=== PATIENT | male | born 2000 | race Caucasian/White ===

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

== ENCOUNTER 2020-03-26 14:45 | Emergency (ER) | payer OTHER ==
[2020-03-26] MEDS ORDERED: Diphtheria,Pertussis(Acell),Tetanus Vaccine 0.5 ML Syringe IM ONE (15:18)
--- NOTE | 2020-03-26 15:19 | EDM.PDOC ---
ED HPI GENERAL MEDICAL PROBLEM - General Chief Complaint: Laceration Stated Complaint: PT SLICE L HAND AND RIGHT FINGER Time Seen by Provider: 03/26/20 15:18 Source of Information: Reports: Patient History Limitations: Reports: No Limitations - History of Present Illness INITIAL COMMENTS - FREE TEXT/NARRATIVE: HISTORY AND PHYSICAL: History of present illness: Patient is a 19-year-old male presents to the ED for left finger laceration. Patient states he cut his finger using a pocket knife trying to open a bag of sunflower seeds an hour prior to arrival to the ED. Patient uncertain of last tetanus. Review of systems: As per history of present illness and below otherwise all systems reviewed and negative. Past medical history: As per history of present illness and as reviewed below otherwise noncontributory. Surgical history: As per history of present illness and as reviewed below otherwise noncontributory. Social history: No reported history of drug or alcohol abuse. Family history: As per history of present illness and as reviewed below otherwise noncontributory. Physical exam: General: Patient sitting comfortably in no acute distress and nontoxic appearing HEENT: Atraumatic, normocephalic, pupils reactive, negative for conjunctival pallor or scleral icterus, mucous membranes moist, throat clear, neck supple, nontender, trachea midline. No meningeal signs. Extremities: 2cm laceration to the left pointer finger to the lateral side of the finger and crossing the PIP. Patient has full ROM of the finger. negative for cords or calf pain. Neurovascular unremarkable. Neuro: Awake, alert, oriented. Cranial nerves II through XII unremarkable. Cerebellum unremarkable. Motor and sensory unremarkable throughout. Exam nonfocal. Notes: Patient given finger splint so patient does not flex finger since sutures cross the PIP of the finger. Diagnostics: none Therapeutics: laceration repair -see procedure note tdap Prescriptions: none Impression: laceration Plan: Keep area clean and dry as instructed Follow-up in 7 days for suture removal Return to ED as needed as discussed Definitive disposition and diagnosis as appropriate pending reevaluation and review of above. L index finger Pain Score (Numeric/FACES): 3 - Related Data Allergies Allergy/AdvReac Type Severity Reaction Status Date / Time orange Allergy Rash Verified 03/26/20 15:19 Home Meds: Home Meds . [No Known Home Meds] 03/26/20 [History] Past Medical History - Past Health History Medical/Surgical History: Denies Medical/Surgical History Social & Family History - Family History Family Medical History: Noncontributory - Caffeine Use Caffeine Use: Reports: None ED ROS GENERAL - Review of Systems Review Of Systems: Comprehensive ROS is negative, except as noted in HPI. ED EXAM, SKIN/RASH Exam: See Below (see dictation) ED SKIN PROCEDURES - Laceration/Wound Repair Left Digit - 2nd (Index) Appearance: Superficial, Subcutaneous, Linear, Clean Distal NVT: Neuro & Vascular Intact, No Tendon Injury Anesthetic Type: Digital Local Anesthesia - Lidocaine (Xylocaine): 1% Plain Local Anesthetic Volume: 5cc Skin Prep: Chlorhexidine (Hibiciens), Saline Saline Irrigation (cc's): 250 Exploration/Debridement/Repair: Wound Explored, In a Bloodless Field, Explored to Base, No Foreign Material Found Lac/Wound length In cm: 2 Suture Size: 5-0 # of Sutures: 7 Suture Type: Nylon, Interrupted, Simple Course - Vital Signs Last Recorded V/S: Last Vital Signs Temp 96.3 F L 03/26/20 15:09 Pulse 120 H 03/26/20 15:09 Resp 17 03/26/20 15:09 BP 143/93 H 03/26/20 15:09 Pulse Ox 95 03/26/20 15:09 - Orders/Labs/Meds Orders: Active Orders 24 hr Category Date Time Status Vaccines to be Administered [RC] PER UNIT ROUTINE Care 03/26/20 15:18 Ordered Meds: Medications Discontinued Medications Generic Name Dose Route Start Last Admin Trade Name Freq PRN Reason Stop Dose Admin Diphtheria/Tetanus/Acell Pertussis 0.5 ml 03/26/20 15:18 03/26/20 15:33 Adacel IM 03/26/20 15:19 0.5 ml .ONCE ONE Administration Lidocaine HCl 5 ml 03/26/20 15:18 03/26/20 15:34 Xylocaine-Mpf 1% INJECT 03/26/20 15:19 5 ml ONETIME ONE Administration Departure - Departure Time of Disposition: 15:59 Disposition: Home, Self-Care 01 Condition: Good Clinical Impression: Laceration - Discharge Information Instructions: Laceration Care, Adult, [id number] Referrals: PCP,None [Primary Care Provider] - Forms: ED Department Discharge Additional Instructions: The following information is given to patients seen in the emergency department who are being discharged to home. This information is to outline your options for follow-up care. We provide all patients seen in our emergency department with a follow-up referral. The need for follow-up, as well as the timing and circumstances, are variable depending upon the specifics of your emergency department visit. If you don't have a primary care physician on staff, we will provide you with a referral. We always advise you to contact your personal physician following an emergency department visit to inform them of the circumstance of the visit and for follow-up with them and/or the need for any referrals to a consulting specialist. The emergency department will also refer you to a specialist when appropriate. This referral assures that you have the opportunity for follow-up care with a specialist. All of these measure are taken in an effort to provide you with optimal care, which includes your follow-up. Under all circumstances we always encourage you to contact your private physician who remains a resource for coordinating your care. When calling for follow-up care, please make the office aware that this follow-up is from your recent emergency room visit. If for any reason you are refused follow-up, please contact the [facility] Emergency Department at and asked to speak to the emergency department charge nurse. [facility] [address] [place], [place] [id number] [place] [address] Keep area clean and dry as instructed Follow-up in 7 days for suture removal Return to ED as needed as discussed Sepsis Event Note - Focused Exam Vital Signs: Vital Signs Temp Pulse Resp BP Pulse Ox 03/26/20 15:09 96.3 F L 120 H 17 143/93 H 95 Date Exam was Performed: 03/26/20 Time Exam was Performed: 16:12 - My Orders Last 24 Hours: My Active Orders 03/26/20 15:18 Vaccines to be Administered [RC] PER UNIT ROUTINE - Assessment/Plan Last 24 Hours: My Active Orders 03/26/20 15:18 Vaccines to be Administered [RC] PER UNIT ROUTINE
== END 2020-03-26 16:23 | disposition home or self-care (01) ==
LOC: MW.ED 14:45
DX: S61.211A Laceration without foreign body of left index finger without damage to nail, initial encounter (principal); Z23 Encounter for immunization; Z91.018 Allergy to other foods; W26.0XXA Contact with knife, initial encounter
CPT/HCPCS: 12001; 90471; 90715; 99282; J2001

== ENCOUNTER 2020-04-02 12:43 | Emergency (ER) | payer OTHER | END 2020-04-02 13:30 | disposition left against medical advice (07) | LOC: MW.ED 12:43 | DX: Z53.21 Procedure and treatment not carried out due to patient leaving prior to being seen by health care provider (principal) ==